=== PATIENT | female | born 1990 | race Caucasian/White ===

== ENCOUNTER → 2020-01-15 | Outpatient (REF) | payer OTHER | LOC: M SFHCWAGY 13:08 | PROVIDERS: ATTEND Obstetrics & Gynecology | DX: R30.0 Dysuria (principal) ==

== ENCOUNTER → 2020-01-23 | Outpatient (CLI) | payer OTHER ==
--- NOTE | 2020-01-25 14:09 | REP ---
INDICATION: ANATOMY COMPARISON: None. TECHNIQUE: Transabdominal obstetrical ultrasound with color Doppler evaluation. FINDINGS: Examination demonstrates a single live intrauterine in transverse (head to maternal right) presentation. motion is identified by technologist. Placenta is noted anterior and grade 0 without evidence for placenta previa or abruption. Amniotic fluid volume is normal. Cervix measures 3.9 cm in length and appears closed.. Gestational age by LMP 19 weeks 3 days with MAIA 06/15/2020. Gestational age by current measurements 19 weeks 3 days with MAIA 06/15/2020. FHR equals 153 beats per minute. BPD: 4.4 cm 19 weeks 3 days HC: 16.7 cm 19 weeks 2 days AC: 13.9 cm 19 weeks 2 days FL: 3.0 cm 19 weeks 3 days HL: 2.9 cm 19 weeks 3 days HC/AC: 1.19 Estimated weight 288 grams (43rdpercentile). Anatomical assessment demonstrates normal structures including cranium, choroid plexus, cavum, cerebellum/posterior fossa, facial features, lungs, four-chamber heart/ventricular outflow tracts, diaphragm, stomach, cord insertion/three-vessel cord, kidneys/bladder, spine, and extremities. IMPRESSION: Single live intrauterine demonstrating appropriate estimated weight and growth. Anatomical assessment is complete and normal. <Electronically signed by Demond Milton > 01/25/20 [id number]
== END ==
LOC: M WHC 09:59
PROVIDERS: ATTEND Obstetrics & Gynecology
DX: Z34.82 Encounter for supervision of other normal pregnancy, second trimester (principal)

== ENCOUNTER → 2020-03-17 | Outpatient (REF) | payer OTHER ==
[2020-03-17 11:54] LABS: HEMATOCRIT 37.6 % (36.0-47.0); MEAN CORPUSCULAR HEMOGLOBIN 31.3 pg (27.0-33.0); MEAN CORPUSCULAR HGB CONC 34.6 g/dl (32.0-36.5); MEAN CORPUSCULAR VOLUME 90.6 fl (80.0-96.0); PLATELET COUNT, AUTOMATED 201 10^3/uL (150-450); RED BLOOD COUNT 4.15 10^6/uL (4.00-5.40); WHITE BLOOD COUNT 8.1 10^3/uL (4.0-10.0)
== END ==
LOC: M PLALAB 09:38
PROVIDERS: ATTEND Obstetrics & Gynecology
DX: Z34.02 Encounter for supervision of normal first pregnancy, second trimester (principal)
CPT/HCPCS: 36415; 82950; 85027; 86850; 86900; 86901; G0463; J2790

== ENCOUNTER → 2020-04-24 | Outpatient (CLI) | payer OTHER ==
--- NOTE | 2020-04-24 18:31 | REP ---
INDICATION: UTERINE SIZE-DATE DISCREPANCY,GROWTH COMPARISON: 01/23/2020 TECHNIQUE: Transabdominal obstetrical ultrasound with color Doppler evaluation. FINDINGS: Examination demonstrates a single live intrauterine in cephalic presentation. motion is identified by technologist. Placenta is noted anterior and grade 2 without evidence for placenta previa or abruption. Amniotic fluid volume is normal. Cervix measures 3.1 cm in length and appears closed.. Gestational age by LMP 32 weeks 4 days with MAIA 06/15/2020. Gestational age by current measurements 33 weeks 0 days with MAIA 06/12/2020. FHR equals 143 beats per minute. LIONEL: 11.0 cm Estimated weight 2003 grams (39thpercentile). IMPRESSION: Single live intrauterine in cephalic presentation demonstrating appropriate interval growth. Amniotic fluid volume normal. <Electronically signed by Demond Milton > 04/24/20 [id number]
== END ==
LOC: M WHC 10:58
PROVIDERS: ATTEND Obstetrics & Gynecology
DX: O26.843 Uterine size-date discrepancy, third trimester (principal); Z3A.32 32 weeks gestation of pregnancy

== ENCOUNTER → 2020-05-19 | Outpatient (REF) | payer OTHER | LOC: M SFHCWAGY 17:09 | PROVIDERS: ATTEND Obstetrics & Gynecology | DX: O26.893 Other specified pregnancy related conditions, third trimester (principal) | CPT/HCPCS: 87081; G0463 ==

== ENCOUNTER 2020-06-18 02:22 | Inpatient (IN) | payer OTHER ==
[2020-06-18] VITALS (33 sets, daily range): BP systolic 99–152; BP diastolic 52–89
[2020-06-18] MEDS ORDERED: METHYLERGONOVINE MALEATE 0.2 MG/ML VIAL (J2210) IM PRN (05:00)
[2020-06-18] MEDS ORDERED: OXYTOCIN DRIP 30 UNITS in IV 1 EA IV PRN (05:00)
[2020-06-18] MEDS ORDERED: LIDOCAINE 1% MDV 20ML VIAL INFIL PRN (05:00)
[2020-06-18 05:34] LABS: HEMATOCRIT 35.4 % (36.0-47.0); HEMOGLOBIN 12.2 g/dl (12.0-15.5); MEAN CORPUSCULAR HGB CONC 34.5 g/dl (32.0-36.5); MEAN CORPUSCULAR VOLUME 90.1 fl (80.0-96.0); PLATELET COUNT, AUTOMATED 176 10^3/uL (150-450); RED BLOOD COUNT 3.93 10^6/uL (4.00-5.40); WHITE BLOOD COUNT 8.9 10^3/uL (4.0-10.0)
--- NOTE | 2020-06-18 07:28 | HPE ---
HISTORY AND PHYSICAL DATE OF ADMISSION: 06/18/2020 HISTORY OF PRESENT ILLNESS: Sallie is a 29-year-old 1 para 0 at 40 and 3/7th weeks gestation, EDC of 06/15/2020 based on last menstrual period and confirmed by first trimester ultrasound. She presents to Labor and Delivery today with report of mild contractions and with spontaneous rupture of membranes, clear fluid at 2300. She reports that she has continued to leak fluid and has noted some pink and red bloody discharge. She reports the contractions are mild and irregular, the fetus has been active. Her care was [facility] at [facility] in the first trimester. Her course has been uncomplicated. OBSTETRIC HISTORY: Primigravida. OBSTETRIC LABS: A negative. Antibody screen negative. Syphilis negative. Gonorrhea and chlamydia negative. Hepatitis B negative. Hepatitis C negative. HIV negative. Rubella immune. GDS normal at 89 and her GBS is negative. PAST MEDICAL HISTORY: Noncontributory. PAST SURGICAL HISTORY: Appendectomy. FAMILY HISTORY: Diabetes. SOCIAL HISTORY: The patient is and her is at bedside and supportive. She is a nonsmoker. Denies alcohol and drug use. She denies a history of sexually transmitted infections and she denies a history of abuse, physical, sexual and emotional. ALLERGIES: No known drug allergies. CURRENT MEDICATIONS: vitamins. OBJECTIVE: Temperature is 97.9, pulse is 61, respirations are 18, BP is 135/89. She is alert and oriented x3. She is smiling and talkative. She is in no apparent distress. heart rate is 135 with moderate variability, positive accelerations, negative decelerations. Contractions are every 2 to 5 minutes. She is continued to leak clear fluids. She is grossly ruptured. Her abdomen is gravid, cephalic presentation. Estimated weight 7 pounds. Sterile vaginal exam: 2 cm dilated, 80% effaced, -2 station. ASSESSMENT: Intrauterine at 40 and 3/7th weeks, heart rate Category 1, premature rupture of membranes. PLAN: Admit patient to Labor and Delivery. Routine labs, saline lock, regular diet at this time, out of bed ad reji, reviewed risks, benefits and alternatives related to Pitocin induction. All of her questions have been answered. At this time, she desires to wait a few more hours to see if active labor will start spontaneously. She has been verbally consented for emergency surgery and blood products if they are necessary.
[2020-06-18] MEDS ORDERED: OXYTOCIN DRIP 30 UNITS in IV 1 EA IV SCH ×2 (10:50→17:31)
--- NOTE | 2020-06-18 10:53 | IPNPDOC ---
Obstetrical Progress Note Date of Service Jun 18, 2020 Subjective Patient is not feeling contractions frequently or uncomfortably. No VB. +FM. Denies f/c/n/v/SCHAEFER/sob/cp. Objective Vital Signs Date Time Temp Pulse Resp B/P (MAP) Pulse Ox O2 Delivery O2 Flow Rate FiO2 06/18/20 08:33 70 126/77 (93) 06/18/20 07:13 98.9 06/18/20 04:44 18 Assessment Heart Rate Tracing: Category I Tocometer Contractions: Yes Frequency: irregular, every 3-7 min. Sterile Vaginal Examination Dilation: 4 cm Effacement (%): 90% Station: -2 Cervical Consistency: Soft Cervical Position: Anterior Postion/Presentation: Cephalic presentation Assessment and Plan Status: Reassuring Group B Streptococcus: Negative Anticipate: Vaginal Delivery Additional Comments Reassuring maternal and status. Discussed dx of prelabor rupture of membranes and recommendation for active management of labor with Pitocin low dose protocol. Patient agrees to proceed with this plan. R/b/a/i of Pitocin reviewed. LORA CANNON DO Jun 18, 2020 10:53
[2020-06-18] MEDS ORDERED: FENTANYL 2MCG/ML ROPIVACAINE 0.2% IN 0.9% NACL 100ML IVBAG As Ordered ONE (12:57)
[2020-06-18] MEDS ORDERED: EPIDURAL/PCA KEYS XX PRN (13:40)
[2020-06-18] MEDS ORDERED: ONDANSETRON 4MG/2ML VIAL IV PRN ×2 (13:40→17:35)
[2020-06-18] MEDS ORDERED: EPIDURAL COMMENT XX SCH (13:40)
[2020-06-18] MEDS ORDERED: REFRIGERATOR IV KEYS XX PRN (13:40)
[2020-06-18] MEDS ORDERED: ePHEDrine SULFATE 25 MG/5 ML(5MG/ML) SYRINGE IV PRN (13:40)
[2020-06-18] MEDS ORDERED: LACTATED RINGER'S 1000 ML IV PRN (13:40)
[2020-06-18] MEDS ORDERED: diphenhydrAMINE 50MG/ML VIAL (J1200) IV PRN (13:40)
[2020-06-18] MEDS ORDERED: NALOXONE INJ 0.4MG/1ML VIAL (J2310 PER 1MG) IV PRN (13:40)
[2020-06-18] MEDS ORDERED: FENTANYL/ROPIVACAINE/NACL BAG 100 ML EPIDURAL SCH (13:40)
--- NOTE | 2020-06-18 15:49 | IPNPDOC ---
Obstetrical Progress Note Date of Service Jun 18, 2020 Subjective Patient feeling rectovaginal pressure. Objective Vital Signs Date Time Temp Pulse Resp B/P (MAP) Pulse Ox O2 Delivery O2 Flow Rate FiO2 06/18/20 14:22 65 104/53 (70) 06/18/20 13:27 20 06/18/20 11:14 98.7 Assessment Heart Rate Tracing: Category I Tocometer Frequency: every 2-5 min. Sterile Vaginal Examination Dilation: complete Effacement (%): 100% Station: +2 Cervical Position: Anterior Postion/Presentation: Cephalic presentation Assessment and Plan Status: Reassuring Anticipate: Vaginal Delivery Additional Comments Maternal pushing efforts have started. Continue Pitocin augmentation PRN. LORA CANNON DO Jun 18, 2020 15:49
[2020-06-18] MEDS ORDERED: MEASLES,MUMPS,RUBELLA VACCINE INJ (MMR-II) (90707) SC SCH (17:35)
[2020-06-18] MEDS ORDERED: RHOGAM 300 MCG (1500 IU) INJ (J2790) IM SCH (17:35)
[2020-06-18] MEDS ORDERED: IBUPROFEN 800 MG TAB PO PRN (17:35)
[2020-06-18] MEDS ORDERED: ACETAMINOPHEN 500 MG TAB PO PRN (17:35)
[2020-06-18] MEDS ORDERED: ACETAMINOPHEN TAB 650MG DOSE (2X325MG) PO PRN (17:35)
[2020-06-18] MEDS ORDERED: DIBUCAINE 1% OINTMENT 30GM TOP PRN (17:35)
--- NOTE | 2020-06-18 17:36 | DNPDOC ---
[facility] Delivery Note Delivery Note DATE OF DELIVERY: 06/18/20 TIME OF DELIVERY: 1721 Spontaneous vaginal delivery. VASCULAR ULTRASOUND TECHNICIAN: Dr. Ermias Lindsey DO FACOG ANESTHESIA: Epidural LACERATION: none ESTIMATED BLOOD LOSS: 200 mL. FINDINGS: See [employer] record Score [8 and 9. DELIVERY SUMMARY: The active phase and second stage of labor progressed in normal fashion.. She received Pitocin augmentation throughout her labor course. The head delivered in the RODOLFO position, and restituted LOT. No nuchal cord was noted. The anterior shoulder delivered with gentle downward guidance and the remainder of the body delivered with ease. The baby was placed on the patient's chest. Delayed cord clamping occurred for approximately 1 minute. The cord was then doubly clamped and cut. IV Pitocin was bolused to actively manage the third stage of labor. The placenta delivered intact without any difficulty within 10 minutes of delivery. The uterine fundus was noted to be firm and 2 cm below the umbilicus. The cervix, vagina, vulva and perineum were inspected. No lacerations. Excellent hemostasis was noted. Sponge, needle and instrument counts were correct per protocol. DO FERNANDO Hollingsworth JONATHAN R. DO Jun 18, 2020 17:36
[2020-06-18] MEDS: IBUPROFEN 600MG TAB PO PRN (21:44)
[2020-06-18] MEDS: DOCUSATE SODIUM 100MG CAPSULE PO PRN (21:44)
[2020-06-19] MEDS: IBUPROFEN 600MG TAB PO PRN (05:22)
[2020-06-19 06:00] VITALS: BP 113/62
[2020-06-19] MEDS: PRENATAL VITAMINS CHEWABLE TABLET PO SCH (07:53)
--- NOTE | 2020-06-19 08:13 | IPNPDOC ---
Progress Note Date of Service: Jun 19, 2020 Day#: 1 Progress Note SUBJECT: Status post . She has been ambulating, voiding spontaneously without issue and tolerating regular diet. Lochia decreasing/minimal. Pain is well-controlled. Denies headache, visual changes, right upper quadrant pain, shortness breath or chest pain. OBJECTIVE: VITAL SIGNS: Within normal limits, afebrile. Alert and oriented times three. Abdomen: Fundus firm at U-2. Soft, NTTP. ASSESSMENT: Status post uncomplicated spontaneous vaginal delivery. Vitals within normal limits, afebrile, hemodynamically stable with no evidence of infection. PLAN: Discharge to home tomorrow. Tylenol and Motrin for pain. Routine instructions/precautions reviewed. Routine PP visit in 6 weeks in clinic. VS, I&O, 24H, Fishbone Vital Signs/I&O Vital Signs Date Time Temp Pulse Resp B/P (MAP) Pulse Ox O2 Delivery O2 Flow Rate FiO2 06/19/20 06:00 98.3 73 16 113/62 (79) 98 Room Air I&O- Last 24 Hours up to 6 AM 06/19/20 06:00 Intake Total 500 ml Output Total 800 ml Balance -300 ml LORA CANNON DO Jun 19, 2020 08:13
[2020-06-19 18:00] VITALS: BP 112/60
[2020-06-20 06:00] VITALS: BP 118/59
[2020-06-20] MEDS: PRENATAL VITAMINS CHEWABLE TABLET PO SCH (08:13)
[2020-06-20] MEDS: IBUPROFEN 600MG TAB PO PRN (08:14)
[2020-06-20] MEDS: DOCUSATE SODIUM 100MG CAPSULE PO PRN (12:13)
== END 2020-06-20 17:10 | disposition home or self-care (01) | DRG 807 ==
LOC: M LDO 02:22 → M LDI 04:45 → M OBS 19:55
PROVIDERS: ADMIT Advanced Practice Midwife; ATTEND Obstetrics & Gynecology
PROC: 10E0XZZ Delivery of Products of Conception, External Approach (ICD-10-PCS; principal; 2020-06-18)
DX: O42.02 Full-term premature rupture of membranes, onset of labor within 24 hours of rupture (principal); Z37.0 Single live birth; O48.0 Post-term pregnancy; Z3A.40 40 weeks gestation of pregnancy

== ENCOUNTER → 2020-09-03 | Outpatient (REF) | payer OTHER | LOC: M SFHCWAGY 15:14 | PROVIDERS: ATTEND Obstetrics & Gynecology | DX: Z12.4 Encounter for screening for malignant neoplasm of cervix (principal) | CPT/HCPCS: G0123; G0463 ==